=== PATIENT | female | born 1955 | race Two or more races ===

== ENCOUNTER 2022-10-02 07:07 | Day surgery (SDC) | payer OTHER | END 2022-10-02 12:10 | disposition home or self-care (01) | LOC: AMB-ENDOS 07:07 | PROVIDERS: ATTEND Surgery | DX: D12.4 Benign neoplasm of descending colon (principal); K92.1 Melena; Z20.822 Contact with and (suspected) exposure to COVID-19 ==

== ENCOUNTER 2022-11-05 09:29 | Inpatient (IN) | payer OTHER ==
[~2022-11-05] VITALS: Ht 154.9 cm; Wt 59.0 kg
[2022-11-06] MEDS ORDERED: AMLODIPINE BESY10 MG PO (13:37)
[2022-11-06] MEDS ORDERED: AVAPRO300 MG PO (13:37)
[2022-11-06] MEDS ORDERED: DOXAZOSIN MESYLA4 MG PO (13:38)
[2022-11-06] MEDS ORDERED: ALTOPREV40 MG PO (13:38)
[2022-11-06] MEDS ORDERED: KLOR-CON8 MEQ PO (13:38)
[2022-11-06] MEDS ORDERED: CHILDREN'S ASPI81 MG PO (13:38)
[2022-11-06] MEDS ORDERED: D3 + K2 DOTS 11 EACH PO (13:39)
[2022-11-13] MEDS ORDERED: NEURONTIN300 MG PO (10:58)
[2022-11-13] MEDS ORDERED: ACETAMINOPHEN500 M2 PO (10:58)
== END 2022-11-13 12:16 | disposition home or self-care (01) | DRG 331 ==
LOC: SURH 11-09 09:30 → O/R 11-09 09:56 → SURH 11-09 15:22
PROVIDERS: ADMIT Surgery; ATTEND Surgery
PROC: 07BB0ZZ Excision of Mesenteric Lymphatic, Open Approach (ICD-10-PCS; 2022-11-09)
PROC: 0DTM0ZZ Resection of Descending Colon, Open Approach (ICD-10-PCS; principal; 2022-11-09 16:30)
DX: D12.4 Benign neoplasm of descending colon (principal); D37.4 Neoplasm of uncertain behavior of colon

== ENCOUNTER 2022-11-27 07:06 | Inpatient (IN) | payer OTHER ==
[~2022-11-27] VITALS: Ht 154.9 cm; Wt 580.6 kg
[~2022-11-27 07:06] MED LIST: ACETAMINOPHEN500 M2 PO; ALTOPREV40 MG PO; AMLODIPINE BESY10 MG PO; AVAPRO300 MG PO; CHILDREN'S ASPI81 MG PO; D3 + K2 DOTS 11 EACH PO; DOXAZOSIN MESYLA4 MG PO; KLOR-CON8 MEQ PO; NEURONTIN300 MG PO
[2022-12-18] MEDS ORDERED: ENDOCET 5-3251 EACH PO (13:08)
[2022-12-18] MEDS ORDERED: PEPCID AC20 MG PO (13:08)
[2022-12-18] MEDS ORDERED: INTESTINEX680 M1 PO (13:09)
== END 2022-12-18 13:27 | disposition home or self-care (01) | DRG 862 ==
LOC: ER 07:06 → ICU-2 16:59 → ICU 16:59 → SURG 12-02 18:15
PROVIDERS: ADMIT Surgery; ATTEND Surgery
PROC: 4A12X4Z Monitoring of Cardiac Electrical Activity, External Approach (ICD-10-PCS; 2022-11-27)
PROC: BW211ZZ Computerized Tomography (CT Scan) of Abdomen and Pelvis using Low Osmolar Contrast (ICD-10-PCS; 2022-11-27)
PROC: 0W9J3ZZ Drainage of Pelvic Cavity, Percutaneous Approach (ICD-10-PCS; principal; 2022-11-28)
PROC: 30243N1 Transfusion of Nonautologous Red Blood Cells into Central Vein, Percutaneous Approach (ICD-10-PCS; 2022-11-28)
PROC: 02HV33Z Insertion of Infusion Device into Superior Vena Cava, Percutaneous Approach (ICD-10-PCS; 2022-11-28)
PROC: BW211ZZ Computerized Tomography (CT Scan) of Abdomen and Pelvis using Low Osmolar Contrast (ICD-10-PCS; 2022-12-03)
PROC: BW21ZZZ Computerized Tomography (CT Scan) of Abdomen and Pelvis (ICD-10-PCS; 2022-12-06)
PROC: BU4CZZZ Ultrasonography of Uterus and Ovaries (ICD-10-PCS; 2022-12-12)
PROC: BW251ZZ Computerized Tomography (CT Scan) of Chest, Abdomen and Pelvis using Low Osmolar Contrast (ICD-10-PCS; 2022-12-12)
DX: T81.43XA Infection following a procedure, organ and space surgical site, initial encounter (principal); A41.51 Sepsis due to Escherichia coli [E. coli]; R65.21 Severe sepsis with septic shock; K65.1 Peritoneal abscess; J18.0 Bronchopneumonia, unspecified organism; R57.1 Hypovolemic shock; A41.52 Sepsis due to Pseudomonas; A41.81 Sepsis due to Enterococcus; K91.89 Other postprocedural complications and disorders of digestive system; N17.9 Acute kidney failure, unspecified; R71.0 Precipitous drop in hematocrit; J98.11 Atelectasis; C18.4 Malignant neoplasm of transverse colon; B96.20 Unspecified Escherichia coli [E. coli] as the cause of diseases classified elsewhere; E86.0 Dehydration; Z90.49 Acquired absence of other specified parts of digestive tract; I10 Essential (primary) hypertension; N95.0 Postmenopausal bleeding; R93.89 Abnormal findings on diagnostic imaging of other specified body structures

== ENCOUNTER 2023-04-22 05:30 | Day surgery (SDC) | payer OTHER ==
[~2023-04-22 05:30] MED LIST changes: +ENDOCET 5-3251 EACH PO; +INTESTINEX680 M1 PO; +LOVASTATIN40 MG PO; +PEPCID AC20 MG PO; +VIT D; +[UNRECOGNIZED DRUG - OTHER]
[2023-04-22] MEDS ORDERED: IBU600 MG PO ×2 (10:19→10:20)
== END 2023-04-22 15:30 | disposition home or self-care (01) ==
LOC: CIR.AMB 05:30
PROVIDERS: ATTEND Obstetrics & Gynecology Gynecology
DX: N84.0 Polyp of corpus uteri (principal); N95.0 Postmenopausal bleeding; Z20.822 Contact with and (suspected) exposure to COVID-19; E78.5 Hyperlipidemia, unspecified; I10 Essential (primary) hypertension

== ENCOUNTER 2024-03-09 09:52 | Outpatient (CLI) | payer OTHER ==
[~2024-03-09 09:52] MED LIST changes: +IBU600 MG PO
== END 2024-03-09 09:54 | disposition home or self-care (01) ==
LOC: SONOGRAMA 09:52
PROVIDERS: ATTEND Pathology Anatomic Pathology & Clinical Pathology
DX: C73 Malignant neoplasm of thyroid gland (principal); E04.2 Nontoxic multinodular goiter